=== PATIENT | female | born 1985 | race Caucasian/White ===

== ENCOUNTER 2024-09-21 14:38 | Outpatient (CLI) | payer MEDICAID, SELFPAY ==
--- NOTE | 2024-09-21 14:41 | MM_ITS ---
PROCEDURE INFORMATION: Exam: MG Bilateral Screening 3D Mammography Exam date and time: 09/21/2024 2:50 PM Age: 39 years old Clinical indication: Screening examination TECHNIQUE: Imaging protocol: Bilateral Screening tomosynthesis and 2D mammography including computer-aided detection (CAD) when performed. COMPARISON: No relevant prior studies available. FINDINGS: MAMMOGRAPHY: Breast composition: There are scattered areas of fibroglandular density. Mass: None. Architectural distortion: None. Calcifications: No suspicious calcifications. Asymmetric density: None. Skin thickening: None. Axillary adenopathy: None. IMPRESSION: No mammographic evidence of malignancy. Annual screening is recommended unless otherwise clinically indicated. ASSESSMENT: BI-RADS Category 1: Negative.
== END 2024-09-21 23:59 | disposition home or self-care (01) ==
LOC: RAD 14:38
PROVIDERS: PCP Nurse Practitioner Family; Visit Provider Nurse Practitioner Family
DX: Z12.31 Encounter for screening mammogram for malignant neoplasm of breast (principal)
CPT/HCPCS: 77063; 77067

== ENCOUNTER 2025-03-31 11:00 | Outpatient (CLI) | payer MEDICAID, SELFPAY ==
--- OUTSIDE RECORDS SUMMARY | 2025-01-06 11:24 | XMS_ITS | Continuity of Care Document ---
Author Organization [facility] Address [address] [place] [address] Phone Care Team Providers Care Signs And Displays Salesperson Name Role Phone Irving INIGUEZ, Tonya Unavailable Unavailable Allergies, Adverse Reactions, Alerts Substance Reaction Status Criticality harden pepper Active No Information Penicillins Active No Information Medications Medication Instructions Dosage Effective Dates (start - stop) Status Comments bupropion HCl 150 mg tablet,12 hr sustained-release(smoki ng deterrent) take 1 tablet by oral route 2 times every day 150 MG - Active levothyroxine 25 mcg capsule take 1 capsule by oral route every day 25 MCG - Active metformin ER 500 mg tablet,extended release 24 hr take 1 tablet by oral route every day with the evening meal 500 MG - Active Advance Directives Directive Yes / No Effective Date File Name No Information Encounters Encounter Description Practice Location Reason(s) For Visit Diagnoses Date Provider [facility], [address], [place], [facility], tel:[phone] [facility] No Information 5 Irving Castaneda. [address] [facility], [place], [place], [id number], [place]. tel:[phone] [facility], [address] [place], [address], [place] tel:[phone] [facility] HR[facility] TESSIE Follow up (chief complaint) Body mass index [BMI] 33.0-33.9, adultHypothyroidismPred iabetesNicotine dependence, electronic nicotine delivery system using tobacco, uncomplicated 5 [facility]. [address] [place], [place], [id number], [place]. tel:[phone] [place] [address], [facility], tel:[phone] [facility] CYNTHIANA f/u abdominal pain (chief complaint) Body mass index [BMI] 32.0-32.9, adultH. pylori as the cause of diseases classified elsewhereHypothyroidism Abnormal results of liver function studiesGastro-esophagea l reflux disease without esophagitis 0 5 [facility] Masha. [address], [place], [id number], [place]. tel:[phone] [place] [address], [facility], tel:[phone] [facility] CYNTH[facility]NA Lab results (chief complaint) HypothyroidismBody mass index [BMI] 31.0-31.9, adultH. pylori as the cause of diseases classified elsewhereEncntr screen mammogram for malignant neoplasm of breastEncounter for screening for malignant neoplasm of cervixRight upper quadrant pain 5 [facility]ier[facility]ike Flanagan. [address], [place], [id number], [place]. tel:[phone] [place] [address], [facility], tel:[phone] [facility]SA ALEXX follow up (chief complaint) Chest painOpioid dependence, uncomplicatedHypothyroi dismSystemic lupus erythematosus, unspecifiedRight upper quadrant pain 5 [facility]. [address] [place] [address], [address], [place]. tel:[phone] [place] [address], [facility], [place] tel:[phone] [facility] ALEXX Hypothyroidism 4 [facility]. [address] [place] [address], [address], [place]. tel:[phone] [facility], [address] [place] [address], [facility], tel:[phone] SHAGUFTAGRey COFFEY Follow Up of Chest pain (chief complaint) Problem related to primary support group, unspecifiedChest painHypothyroidismAbnor mal results of liver function studies 4 [facility]. [address] [place] [address], [facility], . tel:[phone] [facility], [address] [place] [address], [facility], tel:[phone] SHAGUFTAGRey COFFEY establish care (chief complaint) Chest painPain in ankleHypothyroidismEnco unter for screening for malignant neoplasm of cervixEncntr screen mammogram for malignant neoplasm of breastProblem related to primary support group, unspecifiedImprisonment and other incarceration 4 [facility]. [address] [place] [address], [facility], . tel:[phone] [facility], [address] [place] [address], [facility], tel:[phone] SHAGUFTAStrobeRey COFFEY MAT (chief complaint) Extreme povertyUnemployment, unspecifiedProblem related to primary support group, unspecifiedImprisonment and other incarcerationEncounter for screening for depressionOpioid dependence, uncomplicated 4 [facility]. [address] [place] [address], [facility], . tel:[phone] [facility], [address] [place] [address], [facility], tel:[phone] SHAGUFTAGRey COFFEY No Information 4 [facility]. [address] [place] [address], [facility], . tel:[phone] Family History Family Member Type Diagnosis Age At Onset Daughter Problem Alive and well Mother Problem Alive and well Daughter Problem x 2 Brother Problem Alive and well Father Problem Stroke Father Problem Agent Moore Immunizations Vaccine Date Status Comments SARS-COV-2 (COVID-19) vaccin e, mRNA, spike protein, LNP, bivalent booster, preservative free, 50 mcg/0.5 mL or 25 mcg/0.25 mL dose (Moderna) refused Source: New I mmunization Record Influenza virus vaccine, trivalent (IIV3), split virus, preservative free, 0.5 mL dosage, for intramuscular use refused Source: Teresa w Immunization Record Tdap, Adsorbed administered Source: Other Registry Payers Payer name Insurance type Covered republican ID Authoriza tion(s) [employer] - [facility] CI [id number] Hc- [facility] [id number] [facility]- Medicaid Wellcare Wrap Payer [id number] [facility]- Medicaid [employer] [facility] [place] [id number] Hc- Medicaid Wellcare [place]rap Payer [id number] [facility]- Covered Under [place] [id number] Social History Type Description Quantity Date Captured Comments Alcohol Use Details No Caffeine Use Details coffee 1 cup per day Tobacco Use Status No Information Smoking Status Former smoker Sex Female Sexual Orientation Straight or heterosexual Apr Gender Identity Female Chief Complaint And Reason For Visit No Information Plan Of Treatment Date Type Action Status Goal Lipid panel. Due on due Goal Tobacco Use Scre ening. Due on due Goal PAP. Due on due Goal Vitamin B12. Due on due Goal Unhealthy drug use screening due Goal Drug Abuse Scree stephie Test (DAST-10). Due on due Goal Vitamin D. Due on due Goal Generalized Anxi ety Disorder - 7 (BRITT-7). Due on due Goal Tobacco screening. Due on due Goal HIV screen due Goal Obtain Height, W eight, and BMI. Due on due Goal Depression scree stephie. Due on due Goal HPV testing. Due on 025 due Goal CBC. Due on due Goal Tobacco Use Cess ation Counseling. Due on due Goal TSH. Due on due Goal CMP. Due on due Goal Hepatitis C Screening due Goal Diabetes screening. Due on due Goal Influenza vaccine. Due on due Goal Pap/HPV testing. Due on due Goal Follow up Plan f or abnormal BMI (Less than 18.5, greater than 25). Due on due Goal Lipid panel. Due on 026 due Goal Pap/HPV testing. Due on due Goal Vitamin D. Due on due Goal HPV. Due on due Goal CMP. Due on due Goal Generalized Anxi ety Disorder - 7 (BRITT-7). Due on due Goal Obtain Height, W eight, and BMI. Due on due Goal HPV testing. Due on due Goal Drug Abuse Scree stephie Test (DAST-10). Due on due Goal Follow up Plan f or abnormal BMI (Less than 18.5, greater than 25). Due on due Goal Hepatitis C Screening due Goal Tobacco Use Cess ation Counseling. Due on due Goal Tobacco Use Scre ening. Due on due Goal Tobacco screening. Due on due Goal CBC. Due on due Goal Influenza vaccine. Due on due Goal Depression scree stephie. Due on due Goal Vitamin B12. Due on 026 due Goal Diabetes screening. Due on due Goal HIV screen due Goal PAP. Due on due Goal TSH. Due on due Goal Unhealthy drug use screening due Goal Tobacco cessation counseling completed Goal Lifestyle education regardin g diet completed Goal Tobacco Use Cess ation Counseling. Due on due Goal Tobacco screening. Due on due Goal HPV. Due on due Goal Diabetes screening. Due on due Goal TSH. Due on due Goal Influenza vaccine. Due on due Goal CMP. Due on due Goal Obtain Height, W eight, and BMI. Due on due Goal HIV screen. Due on 25 due Goal Generalized Anxi ety Disorder - 7 (BRITT-7). Due on due Goal PAP. Due on due Goal Follow up Plan f or abnormal BMI (Less than 18.5, greater than 25). Due on due Goal HPV testing. Due on due Goal Tobacco Use Scre ening. Due on due Goal Pap/HPV testing. Due on due Goal Vitamin B12. Due on due Goal Depression scree stephie. Due on due Goal Unhealthy drug u se screening. Due on due Goal CBC. Due on due Goal Vitamin D. Due on due Goal Drug Abuse Scree stephie Test (DAST-10). Due on due Goal Lipid panel. Due on due Goal Hepatitis C Scre ening. Due on due Goal Lifestyle education regardin g diet completed Goal Lifestyle education regardin g diet completed Goal CMP. Due on due Goal Drug Abuse Scree stephie Test (DAST-10). Due on due Goal Influenza vaccine. Due on due Goal TSH. Due on due Goal Tobacco Use Cess ation Counseling. Due on due Goal Depression scree stephie. Due on due Goal Lipid panel. Due on due Goal Generalized Anxi ety Disorder - 7 (BRITT-7). Due on due Goal Hepatitis C Scre ening. Due on due Goal HIV screen. Due on due Goal HPV. Due on due Goal Tobacco Use Scre ening. Due on due Goal PAP. Due on due Goal Diabetes screening. Due on due Goal Vitamin B12. Due on due Goal HPV testing. Due on due Goal Obtain Height, W eight, and BMI. Due on due Goal Vitamin D. Due on due Goal Unhealthy drug u se screening. Due on due Goal Pap/HPV testing. Due on due Goal CBC. Due on due Goal Follow up Plan f or abnormal BMI (Less than 18.5, greater than 25). Due on due Goal Lifestyle education regardin g diet completed Goal Tobacco cessation counseling completed Goal Lipid panel. Due on due Goal Tobacco Use Scre ening. Due on due Goal Vitamin D. Due on due Goal Follow up Plan f or abnormal BMI (Less than 18.5, greater than 25). Due on due Goal Influenza vaccine. Due on due Goal Generalized Anxi ety Disorder - 7 (BRITT-7). Due on due Goal Tobacco Use Cess ation Counseling. Due on due Goal Unhealthy drug u se screening. Due on due Goal Pap/HPV testing. Due on due Goal TSH. Due on due Goal HIV screen. Due on due Goal Hepatitis C Scre ening. Due on due Goal Obtain Height, W eight, and BMI. Due on due Goal PAP. Due on due Goal CBC. Due on due Goal Diabetes screening. Due on due Goal Vitamin B12. Due on due Goal CMP. Due on due Goal HPV. Due on due Goal Drug Abuse Scree stephie Test (DAST-10). Due on due Goal Depression scree stephie. Due on due Goal HPV testing. Due on due Goal CMP. Due on due Goal Hepatitis C Scre ening. Due on due Goal TSH. Due on due Goal Vitamin B12. Due on due Goal Influenza vaccine. Due on due Goal Lipid panel. Due on due Goal Diabetes screening. Due on due Goal Tobacco Use Scre ening. Due on due Goal Unhealthy drug u se screening. Due on due Goal Follow up Plan f or abnormal BMI (Less than 18.5, greater than 25). Due on due Goal Generalized Anxi ety Disorder - 7 (BRITT-7). Due on due Goal Obtain Height, W eight, and BMI. Due on due Goal Vitamin D. Due on due Goal PAP. Due on due Goal Drug Abuse Scree stephie Test (DAST-10). Due on due Goal CBC. Due on due Goal Depression scree stephie. Due on due Goal HPV testing. Due on due Goal Pap/HPV testing. Due on due Goal HPV. Due on due Goal Tobacco Use Cess ation Counseling. Due on due Goal HIV screen. Due on due Goal Tobacco Use Cess ation Counseling. Due on due Goal HPV testing. Due on due Goal PAP. Due on due Goal Depression scree stephie. Due on due Goal Drug Abuse Scree stephie Test (DAST-10). Due on due Goal Tobacco Use Scre ening. Due on due Goal Generalized Anxi ety Disorder - 7 (BRITT-7). Due on due Goal TSH. Due on due Goal CMP. Due on due Goal Hepatitis C Scre ening. Due on due Goal Obtain Height, W eight, and BMI. Due on due Goal Follow up Plan f or abnormal BMI (Less than 18.5, greater than 25). Due on due Goal Pap/HPV testing. Due on due Goal Vitamin B12. Due on due Goal HPV. Due on due Goal Lipid panel. Due on due Goal Unhealthy drug u se screening. Due on due Goal Influenza vaccine. Due on due Goal HIV screen. Due on due Goal CBC. Due on due Goal Vitamin D. Due on due Goal Diabetes screening. Due on due Goal Unhealthy drug u se screening. Due on due Goal Pap/HPV testing. Due on due Goal Tobacco Use Cess ation Counseling. Due on due Goal Generalized Anxi ety Disorder - 7 (BRITT-7). Due on due Goal Vitamin B12. Due on due Goal CBC. Due on due Goal Depression scree stephie. Due on due Goal CMP. Due on due Goal Lipid panel. Due on due Goal TSH. Due on due Goal Hepatitis C Scre ening. Due on due Goal Obtain Height, W eight, and BMI. Due on due Goal Follow up Plan f or abnormal BMI (Less than 18.5, greater than 25). Due on due Goal Diabetes screening. Due on N due Goal PAP. Due on due Goal Drug Abuse Scree stephie Test (DAST-10). Due on due Goal Vitamin D. Due on due Goal Influenza vaccine. Due on No due Goal HIV screen. Due on due Goal HPV. Due on due Goal HPV testing. Due on due Goal Tobacco Use Scre ening. Due on due Goal Depression scree stephie. Due on due Goal Hepatitis C Scre ening. Due on due Goal HPV testing. Due on due Goal Lipid panel. Due on due Goal CBC. Due on due Goal Generalized Anxi ety Disorder - 7 (BRITT-7). Due on due Goal Diabetes screening. Due on N due Goal Vitamin D. Due on due Goal Influenza vaccine. Due on No due Goal Unhealthy drug u se screening. Due on due Goal Tobacco Use Scre ening. Due on due Goal TSH. Due on due Goal Pap/HPV testing. Due on due Goal Vitamin B12. Due on 024 due Goal CMP. Due on due Goal PAP. Due on due Goal HPV. Due on due Goal Obtain Height, W eight, and BMI. Due on due Goal Drug Abuse Scree stephie Test (DAST-10). Due on due Goal Follow up Plan f or abnormal BMI (Less than 18.5, greater than 25). Due on due Goal Tobacco Use Cess ation Counseling. Due on due Goal HIV screen. Due on due Referral Referred To: Gastroenterology Ordered: Referrals: Gastroenterology. Location: [facility]. Evaluate and treat Appointment date/timeframe: 09/27/2024 ordered Referral Referred To: [facility] Ordered: Referrals: Gynecology. [facility]. Evaluate and treat Appointment date/timeframe: 10/11/2024 ordered Referral Ordered: SCR MAMMO BI INCL CAD Bilateral breast Appointment date/timeframe: 09/21/2024 ordered Referral Ordered: CT ABDOMEN W/O & W/DYE Appointment date/timeframe: 07/28/2024 ordered Referral Referred To: [facility] Ordered: Referrals: Radiotherapy. [facility]. Location: [place]. Diagnostic testing Appointment date/timeframe: 09/07/2024 ordered Referral Referred To: [facility] Ordered: Referrals: Gynecology. [facility]. Location: [place]. Evaluate and treat Appointment date/timeframe: 08/11/2024 ordered Referral Referred To: [facility] Ordered: Referrals: Radiotherapy. [facility]. Location: [facility]. Diagnostic testing Appointment date/timeframe: 06/11/2024 ordered Future Order: Lab Order Actin (S mooth Muscle) Antibody ([id number]), Sent on: Sent Future Order: Lab Order Cerulopl asmin ([id number]), Sent on: Sent Future Order: Lab Order Copper, Serum ([id number]), Sent on: Sent Future Order: Lab Order Ferritin , Serum ([id number]), Sent on: Sent Future Order: Lab Order Alpha-1- Antitrypsin, Serum ([id number]), Sent on: Sent Future Order: Lab Order Acute He patitis ([id number]), Sent on: Sent Future Order: Lab Order Acute He patitis ([id number]), Sent on: Sent Future Order: Lab Order CBC With Differential/Platelet ([id number]), Sent on: Sent Future Order: Lab Order Comp. Me tabolic Panel (14) ([id number]), Sent on: Sent Future Order: Lab Order Hemoglob in A1c ([id number]), Sent on: Sent Future Order: Lab Order HIV 1/0/ 2 Ag/Ab with Reflex ([id number]), Sent on: Sent Future Order: Lab Order Lipid Pa praneeth ([id number]), Sent on: Sent Future Order: Lab Order TSH ([id number]), Sen t on: Sent Future Order: Lab Order Vitamin B12 ([id number]), Sent on: Sent Future Order: Lab Order Folate ( Folic Acid), Serum ([id number]), Sent on: Sent History Of Present Illness Encounter Date Complaint History Of Yamilex nt Illness Follow up Pt is here today for a routine follow up. She reports that she is taking her thyroid medication but has not started her Metformin. Her mother used to take it and had the pt scared to take it. I spoke with her and educated her on Metformin and the benefits of her taking the medication and she has agreed to give it a try. we will reassess labs in 3 months. She is to return sooner if needed.She denies any complaints today.vaping 1 cartridge 1.5 weekssmoking cessation discussed will start welbutrin to aid in cessation f/u abdominal pain Kim is her e today for f/u on recent labs and to repeat breath testing for H.Pylori.She has completed her antibiotics, states feels much better.her liver enzyme ALT are slightly elevated at 37She did had + JUAN PABLO, M2 Antibody was elevated at 40.5CMP was not completed- will need recollectionHepatitis panel negTSH was elevatedLevothyroxine adjusted to 25 mcg dailyTSH was back wnl at this lab draw.She reports she did not get her medication for TSH- called and spoke with pharmacist Jessica- stated it was placed on hold, but will be sent out today.Pt is awarePt will have Mammo and Pap completed in September at [facility] Lab results Follow up lab wo rkNeeds refill on Ibuprofen and LevothyroxineWould like something for Jcarlos is a a former patient of Dr. Hoover in our [place] office, and has relocated to the [facility].Labs from 07/16/24 were for Lupus work-upANA neg, Ceruloplasmin okCopper wnlFe wnl.TSH remains elevated at 5.510Rachel wanted to discuss weight loss medication today.We did discuss risks and benefits, as well as lifestyle changes, exercise, and eating a proportional and balanced diet.Further more, we will continue to regulate her Thyroid.I am repeating TSH along with other labs.iKm is due for a Pap- would like refrerred to Dr. Gallegos at [facility] IUD removed that is 7 years old.She has not had a pap in that time period.Due for Mammo- [facility]- declines colonoscopyDeclines flu vaccineUS of RUQ was normal 07/08/24reviewed with pt. H.pylori testing + here in clinic todaytreatment sent - pt to [facility] in 2 weeks for repeat breath test and f/u today's labs.Previous IV drug use- last use 4 years ago.Not in any treatment programs at this time. follow up ultrasound and l ab results, needs refill of Ibuprofen and something for weight lossPap Smear scheduled for 07/2023 Follow Up of Chest pain The dalia nt presents with a complaint of Follow Up of Chest pain. The client denies dyspnea and vomiting. The client denies any abdominal pain. Additional information: States still having pain. States numbness in right hand x 1 week. [facility] care Patient is from [facility]) c/o ankle swelling for a few years, two yrs ago was seen in ER in [place] for chest pain was found with blood clot but stated she did not obtain treatment and left, also c/o of random chest pains, last chest pain 4 days ago, states feels like it could be anxiety2) states use to take Thyroid medication and has not taken since [address]12) Needs scheduled for Pap Smear and MammogramVerbal order received per Dr Hoover: Ibuprofen 800 mg 1 Q 6-8 hrs prn #100, called to [facility] Patient seen tod ay for suboxone (buprenorphine) consult via in office/webX. Would like to quit using illicit opioids. We discussed treatment options for opioid addiction in detail: suboxone, naltrexone, vivitrol, abstinence only. Would like to start suboxone. We discussed treatment requirements, the induction, and benefits of counseling. (add individualized note) Client appeared alert and attentive. Client denies SI, HI, or self harm at this time. Client was cooperative and participated well during session. Provider provided support and encouragement. Patient denies signs of liver failure, including jaundice, diffuse abdominal pain or pain focused in the upper right quadrant, abdominal swelling, excessive vomiting, or disorientation or confusion. If patient develops these symptoms patient agrees to report to the nearest emergency room or call 911. Client admits and confirms that Opioids are often/have been taken in larger amounts or over a longer period of time than intended. There is/was a persistent desire or unsuccessful efforts to cut down or control opioid use. A great deal of time is/was spent in activities necessary to obtain the opioid, use the opioid, or recover from its effects. There was/is a Craving, or a strong desire to use opioids. Recurrent opioid use resulting in failure to fulfill major role obligations at work, school or home. Continued opioid use despite having persistent or recurrent social or interpersonal problems caused or exacerbated by the effects of opioids. Important social, occupational or recreational activities are/were given up or reduced because of opioid use. Recurrent opioid use in situations in which it is physically hazardous. Continued use despite knowledge of having a persistent or recurrent physical or psychological problem that is likely to have been caused or exacerbated by opioids. Patient accepted and agreeable to treatment through [facility].Today's in house UDS shows __Negative for any illicit drugs y/o female/male that presents today for a mental health evaluation. He/She has c/o anxiety symptoms such as constant worry that is hard to control, muscle tension, irritability. Panic attacks and social phobia. Has depressed mood that occurs most days than not over the last two weeks, anhedonia, hopeless, helpless, low energy, motivation, and guilty feelings and decreased concentration. Rates depression a on a scale of 1 to 10, with 10 being the worst, and on that same scale rates anxiety a . Denies any trauma, nightmares or flashbacks. Pt denies any elevated mood, with inflated self-esteem, decreased need for sleep, racing thoughts, being hypersexual, spending sprees, getting into arguments or fights or being impulsive. Denies rituals or OCD symptoms. Denies any A/V hallucinations or paranoia. Denies any SI or HI or intrusive thoughts or self harming. Pt also denies any brain injuries, seizures, eating disorders. . mental health hospitalizations, or suicide attempts. Denies any substance use/abuse currently or history of. Kim has long standing Hx of SA , she began using Cannabis at age [age] years old . It progressed to Meth use at age 16 years . She used it for 1 year , had her daughter and she quit using it for 4 years . She relapsed at age 27 years of age with Meth and heroin . She has 2 kids , both stayed with the biological father and she got possession charges and she went to retirement , rehab , got sober and relapsed again in 2017 . She completed the drug court and after she got out of drug court in 2015 , she relapsed again in 2017 . She ran away to [place] , continued to use Meth and Cannabis . Instructions Date Instruction Additional Infor yasmine Patient educated on the importance of maintaining glycemic control. Counseled on diet, exercise and other lifestyle factors that can impact glucose control. Instructed on the importance of taking all medications as prescribed. Patient aware of the importance of diabetic eye exams, dental check ups, foot exams and diabetic foot care. Patient verbalized understanding. Related to Prediabetes Take medication félix y at the same time, and on an empty stomach. Get adequate rest daily and 30 minutes of moderate exercise most days of the week. Related to Hypothyroidism Giving encouragement to exercise Related to Body mass index [BMI] 33.0-33.9, adult Lifestyle education regarding di et Related to Body mass index [BMI] 33.0-33.9, adult Take medication félix y at the same time, and on an empty stomach. Get adequate rest daily and 30 minutes of moderate exercise most days of the week. Related to Hypothyroidism Counseled patients o n medications for reflux. Discussed lifestyle modifications including but not limited to elevating the head of the bed, limiting fatty, greasy, spicy food intake. Avoid heavy meals and caffeine intake within 2 hours of bedtime. If applicable, reduce/discontinue tobacco use and/or alcohol use, as both can make reflux symptoms worse. Related to H. pylori as the cause of diseases classified elsewhere Giving encouragement to exercise Related to Body mass index [BMI] 32.0-32.9, adult Lifestyle education regarding di et Related to Body mass index [BMI] 32.0-32.9, adult Giving encouragement to exercise Related to Body mass index [BMI] 32.0-32.9, adult Lifestyle education regarding di et Related to Body mass index [BMI] 32.0-32.9, adult Dietary Instructions for a healthy weight: BMI should be between the range of 18.5-24.9 for an adult; and Caloric intake should be around 8257-2581 for a female, and 7736-9037 for an adult male. Fiber intake should be about 14 grams for 1000 calories per day. That is about 20-30 grams daily. Good sources of fiber are oatmeal, fortified grains, and green leafy vegetables, apples. You can also use Carbohydrate counting to maintain a healthy weight. One serving is equal to 15 grams (1 piece of bread, small fruit, or 1 cup of milk). Men should have 45-75, Women about 30-65 per meal, and snacks are recommend to be 13-30 grams each. [employer] is a good source for meal planning and dietary education. You may also refer to the [place] [employer] website for further low sodium, health heart diet information. [place]iter[place] diet would be a suitable diet for your current health conditions. Physical activity as tolerated. Try to engage in some form of moderate physical activity for 30 minutes most days of the week. May modify activity as needed to reduce discomfort. Try to achieve/maintain a healthy body weight to reduce strain on musculoskeletal system. Verbalizes an understanding. Related to Body mass index [BMI] 31.0-31.9, adult Take medication félix y at the same time, and on an empty stomach. Get adequate rest daily and 30 minutes of moderate exercise most days of the week. Related to Hypothyroidism Counseled patients o n medications for reflux. Discussed lifestyle modifications including but not limited to elevating the head of the bed, limiting fatty, greasy, spicy food intake. Avoid heavy meals and caffeine intake within 2 hours of bedtime. If applicable, reduce/discontinue tobacco use and/or alcohol use, as both can make reflux symptoms worse. Take all antibiotics until complete. RTC in 2 weeks for breath H.Pylori testing of clearance.Today + for h.pylori. Related to H. pylori as the cause of diseases classified elsewhere Giving encouragement to exercise Related to Body mass index [BMI] 31.0-31.9, adult Lifestyle education regarding di et Related to Body mass index [BMI] 31.0-31.9, adult Assessments Type Assessment Date No Information
[2025-03-31 14:58] LABS: Coronavirus 19, PCR Not Detected (NotDetected); Influenza A, PCR Not Detected (NotDetected); Influenza B, PCR Not Detected (NotDetected)
--- OUTSIDE RECORDS SUMMARY | 2025-04-01 12:21 | XMS_ITS | Clinical Summary ---
Author Organization [facility] Address [address] [place] [id number] Care Team Providers Care Brewing Director Name Role Phone Kelly Morin APRN Primary Care Provider [phone] Allergies Active Allergy Reactions Criticality Noted Date Comments Penicillins Rash Low 07/02/2012 Pepper Anaphylaxis High 08/04/2024 Fernandez-peppers Medications * This document contains information received from the source organization and may not represent a complete record from that organization. levothyroxine (SYNTHROID, LEVOTHROID) 25 MCG tablet Take 1 tablet by mouth Every Morning. Active ibuprofen (ADVIL,MOTRIN) 800 MG tablet Take 1 tablet by mouth Every 6 (Six) Hours As Needed for Mild Pain. Active omeprazole (priLOSEC) 40 MG capsule Take 1 capsule by mouth Daily. 30 capsule 1 08/04/2024 Active acetaminophen (Tylenol 8 Hour) 650 MG 8 hr tablet Take 1 tablet by mouth Every 8 (Eight) Hours As Needed for Mild Pain or Moderate Pain. 60 tablet 1 08/04/2024 Active Active Problems Problem Noted Date Diagnosed Date Chronic right shoulder pain 05/15/2016 Gastroesophageal reflux disease 05/15/2016 Obesity, Class I, BMI 30-34.9 05/15/2016 Hyperlipidemia with target LDL less than 130 12/2015 Hypothyroidism (acquired) 01/04/2016 Family history of early CAD 11/30/2015 FHx: migraine headaches 11/30/2015 Irregular heart beats 11/30/2015 Overview (08/04/2024): Halter monitor on 12/24/13 NSR with sinus bradycardia, tachycardia. Av hr 97 ranging from 46-150. No PAC's or PVC Immunizations Immunization Administration Dates Next Due Tdap 02/07/2014 Social History Tobacco Use Types Packs/Day Years Used Date Smoking Tobacco: Never Passive Smoke Exposure: Never Smokeless Tobacco: Never Alcohol Use Standard Drinks/Week Comments Never 0 (1 standard drink = 0.6 oz pur e alcohol) PHQ-2 Answer Date Recorded Patient Health Questionnaire-2 Score 0 08/04/2024 Comments No Sex and Gender Information Value Date Recorded Sex Assigned at Not on file Legal Sex Female 10:58 AM EDT Gender Identity Not on file Sexual Orientation Not on file Last Filed Vital Signs Vital Sign Reading Time Taken Comments Blood Pressure 116/76 08/04/2024 10:47 AM EST Pulse 67 08/04/2024 10:47 AM EST Temperature 36.6 C (97.8 F) 08/04/2024 10:47 AM EST Respiratory Rate 16 08/04/2024 10:47 AM EST Oxygen Saturation 99% 08/04/2024 10:47 AM EST Inhaled Oxygen Concentration - - Weight 92.1 kg (203 lb) 08/04/2024 10:47 AM EST Height 170.2 cm (5' 7 ) 08/04/2024 10:47 AM EST Body Mass Index 31.79 08/04/2024 10:47 AM EST Plan of Treatment Health Maintenance Due Date Last Done Comments Annual Gynecologic Pelvic an d Breast Exam 1984 PAP SMEAR 01/01/2005 MAMMOGRAM 2024 TDAP/TD VACCINES (2 - Td or Tdap) 02/08/2024 014 ANNUAL PHYSICAL 06/01/2024 INFLUENZA VACCINE 01/28/2025 LIPID PANEL 06/01/2025 06/01/2024 HEPATITIS C SCREENING Completed 06/01/2024 Pneumococcal Vaccine 0-49 Aged Out No longer eligible based on patient's age to complete this topic Procedures Procedure Name Priority Date/Time Associated Diagnosis Comments LIPID PANEL Routine 06/01/2024 10:42 AM EST Screening for lipoid disorders Chest pain, unspecified type Screening for human immunodeficiency virus Screening for phenylketonuria (PKU) Screening for iron deficiency anemia Special screening for malignant neoplasm of intestine HEPATITIS PANEL, ACUTE Routine 06/01/2024 10:42 AM EST Screening for lipoid disorders Chest pain, unspecified type Screening for human immunodeficiency virus Screening for phenylketonuria (PKU) Screening for iron deficiency anemia Special screening for malignant neoplasm of intestine from Last 3 Months or Most Recently Relevant to Health Maintenance Results * Hepatitis Panel, Acute (06/01/2024 10:42 AM EST) Pathologist [facility] [place] Hepatitis B Surface Ag Non-Reacti ve Non-Reacti ve 06/01/2024 7:56 PM EST [facility] Hep A IgM Non-Reacti ve Non-Reacti ve 06/01/2024 7:56 PM EST [facility] Hep B C IgM Non-Reacti ve Non-Reacti ve 06/01/2024 7:56 PM EST [facility] Hepatitis C Ab Non-Reacti ve Non-Reacti ve 06/01/2024 7:56 PM EST [facility] Blood Venipuncture / Unknown 06/01/2024 10:42 AM EST 06/01/2024 12:12 PM EST [facility] - 06/01/2024 7:56 PM EST Results may be falsely decreased if patient taking Biotin. Go Hoover MD LAB BLOOD ORDERABLES Final Resul t [facility]
[address] [place] [address], * (ABNORMAL) Lipid Panel (06/01/2024 10:42 AM EST) Pathologist [facility] [place] Total Cholesterol 253(H) 0 - 200 mg/dL 06/01/2024 9:29 PM [facility] Triglycerides 111 0 - 150 mg/dL 06/01/2024 9:29 PM EST [facility] HDL Cholesterol 53 40 - 60 mg/dL 06/01/2024 9:29 PM [facility] LDL Cholesterol 180(H) 0 - 100 mg/dL 06/01/2024 9:29 PM [facility] VLDL Cholesterol 20 5 - 40 mg/dL 06/01/2024 9:29 PM EST [facility] LDL/HDL Ratio 3.35 06/01/2024 9:29 PM EST [facility] Blood Venipuncture / Unknown 06/01/2024 10:42 AM EST 06/01/2024 12:11 PM EST Narrative [facility] - 06/01/2024 9:29 PM EST Cholesterol Reference Ranges (U.S. Department of Health and Human Services ATP III Classifications) Desirable <200 mg/dL Borderline High 200-239 mg/dL High Risk >240 mg/dL Triglyceride Reference Ranges (U.S. Department of Health and Human Services ATP III Classifications) Normal <150 mg/dL Borderline High 150-199 mg/dL High 200-499 mg/dL Very High >500 mg/dL HDL Reference Ranges (U.S. Department of Health and Human Services ATP III Classifications) Low <40 mg/dl (major risk factor for CHD) High >60 mg/dl ('negative' risk factor for CHD) LDL Reference Ranges (U.S. Department of Health and Human Services ATP III Classifications) Optimal <100 mg/dL Near Optimal 100-129 mg/dL Borderline High 130-159 mg/dL High 160-189 mg/dL Very High >189 mg/dL Go Hoover MD LAB BLOOD ORDERABLES Final Resul t [facility]
[address] [place] [address], from Last 3 Months or Most Recently Relevant to Health Maintenance Insurance [facility] MEDICAID Care Teams Brewing Director Relationship Specialty Start Date End Date GeaugaKelly nguyen APRN [address] [address] PCP - General Family Medicine 08/04/24
== END 2025-03-31 23:59 | disposition home or self-care (01) ==
LOC: LAB.DROPOF 04-01 12:19
PROVIDERS: PCP Nurse Practitioner; Visit Provider Nurse Practitioner
DX: J06.9 Acute upper respiratory infection, unspecified (principal)
CPT/HCPCS: 87631